=== PATIENT | female | born 1990 | race Caucasian/White ===

== ENCOUNTER 2018-06-18 12:00 | Inpatient (IN) | payer MEDICAID, OTHER ==
[~2018-06-18 12:00] MED LIST: Dexamethasone 20 MG/5 ML VIAL ONE; Ketorolac Tromethamine 30 MG/ML VIAL ONE; Ondansetron HCl/PF 4 MG/2 ML Vial ONE; PHENYLEPHRINE-NS 100 MCG/ML 10 ML SYRINGE ONE; ePHEDrine/0.9% NaCl/PF SYRINGE 50 mg/10 ml ONE
[2018-06-18 15:56] VITALS: BMI 42.2
[2018-06-18] MEDS ORDERED: Ondansetron HCl/PF 4 MG/2 ML Vial IVP PRN ×4 (16:26→20:52)
[2018-06-18] MEDS ORDERED: Ketorolac Tromethamine 30 MG/ML VIAL IVP PRN (16:26)
[2018-06-18] MEDS ORDERED: HYDROmorphone 2 MG/ML VIAL SLOW IVP PRN (16:26)
[2018-06-18] MEDS ORDERED: Meperidine HCl/PF 25 MG/ML VIAL SLOW IVP PRN (16:26)
[2018-06-18] MEDS ORDERED: Eucerin (Mineral Oil/Petrolatum,White) 30 gm Jar TOP PRN (16:26)
[2018-06-18] MEDS ORDERED: Naloxone HCl 0.4 mg/ml Vial IVP PRN ×2 (16:26)
[2018-06-18] MEDS ORDERED: Promethazine HCl 25 MG/ML VIAL IM PRN ×2 (16:26)
[2018-06-18] MEDS ORDERED: diphenhydrAMINE 50 MG/ML VIAL IVP PRN (16:26)
[2018-06-18] MEDS ORDERED: Naloxone HCl 0.4 mg/ml Vial IV PRN (16:26)
[2018-06-18] MEDS ORDERED: Promethazine HCl 25 MG SUPP PR PRN (16:26)
[2018-06-18] MEDS ORDERED: Bicitra 30 ML UDCUP ONE (16:26)
[2018-06-18] MEDS ORDERED: CEFAZOLIN/Water 2 GM/20 ML SYRINGE ONE (16:26)
[2018-06-18] MEDS ORDERED: Lactated Ringer's 1,000 ML IV SCH (16:30)
[2018-06-18] MEDS ORDERED: CEFAZOLIN/Water 2 GM/20 ML SYRINGE SLOW IVP SCH (16:30)
[2018-06-18] MEDS ORDERED: Communication Order-Pharmacy FS SCH (16:30)
[2018-06-18] MEDS ORDERED: Bicitra 30 ML UDCUP PO SCH (16:30)
[2018-06-18] MEDS ORDERED: Ketorolac Tromethamine 30 MG/ML VIAL IVP SCH (16:30)
[2018-06-18 16:46] LABS: #Eosinphils 0.2 thou/uL (0.0-0.7); #Lymphocytes 1.5 thou/uL (1.20-3.40); #Monocytes 0.5 thou/uL (0.11-0.59); #Neutrophils 7.1 thou/uL (1.40-6.50); %Basophils 0.3 % (0.0-1.0); %Lymphocytes 16.3 % (21.0-51.0); %Monocytes 5.6 % (0.0-10.0); %Neutrophils 75.8 % (42.0-75.0); Hemoglobin 11.5 g/dL (12.0-16.0); Mean Corpuscular HGB CONC 34.6 g/dL (32.0-36.0); Mean Corpuscular Hemoglobin 30.6 pg (27.0-31.0); Mean Corpuscular Volume 88.3 fL (78.0-98.0); Mean Platelet Volume 8.5 fL (7.4-10.4); Platelet Count 195 thou/uL (130-400); RBC Distribution Width 12.5 % (11.5-14.5); Red Blood Cell (RBC) Count 3.77 mill/uL (4.20-5.40); White Blood Cell (WBC) Count 9.3 thou/uL (4.8-10.8)
[2018-06-18 17:26] LABS: Syphilis Antibody Nonreactive (Nonreactive); Syphilis Antibody Index 0.09 S/CO (<1.00 Non-Reactive)
[2018-06-18 17:27] LABS: HBSAg Index 0.32 S/CO (0-0.99); Hep B Surf Ag Non-Reactive S/CO (NonReactive)
[2018-06-18 19:26] LABS: Amphetamine Not Detected (NotDetected); Barbiturates Screen Not Detected (NotDetected); Benzodiazepine Screen Not Detected (NotDetected); Cocaine Metabolite Screen Not Detected (NotDetected); Medtox Control Line Valid? VALID (VALID); Medtox Reader # READER 4; Methadone Not Detected (NotDetected); Methamphetamine Not Detected (NotDetected); Opiate Screen Not Detected (NotDetected); Oxycodone Screen Not Detected (NotDetected); Phencyclidine (PCP) Not Detected (NotDetected); THC/Cannabinoid Screen Not Detected (NotDetected); Tricyclic Screen Not Detected (NotDetected)
[2018-06-18] MEDS ORDERED: Bisacodyl 10 MG SUPP PR PRN (20:52)
[2018-06-18] MEDS ORDERED: Simethicone Chewable 80 MG TAB PO PRN (20:52)
[2018-06-18] MEDS ORDERED: diphenhydrAMINE 25 MG CAP PO PRN (20:52)
[2018-06-18] MEDS ORDERED: NS / Oxytocin 40 units/1000ml 1,000 ML IV SCH (20:52)
[2018-06-18] MEDS ORDERED: Meperidine HCl/PF 25 MG/ML VIAL IM PRN (20:52)
[2018-06-18] MEDS ORDERED: HYDROcodone/Acetaminophen 5/325 mg Tablet PO PRN (20:52)
[2018-06-18] MEDS ORDERED: Adacel (T-DAP) 0.5 ML VIAL IM ONE (21:15)
[2018-06-18] MEDS: Ferrous Sulfate 325 MG TAB PO SCH (23:59)
[2018-06-18] MEDS: Ibuprofen 800 MG TAB PO SCH (23:59)
[2018-06-18] MEDS: Docusate Calcium (SURFAK) 240 MG CAP PO SCH (23:59)
[2018-06-19] MEDS ORDERED: Butorphanol Tartrate 1 MG/ML VIAL SLOW IVP PRN (04:30)
[2018-06-19] MEDS: Ibuprofen 800 MG TAB PO SCH ×3 (05:12→22:22)
[2018-06-19 05:34] LABS: Hemoglobin 10.7 g/dL (12.0-16.0); Mean Corpuscular HGB CONC 34.8 g/dL (32.0-36.0); Mean Platelet Volume 8.7 fL (7.4-10.4); Platelet Count 173 thou/uL (130-400); RBC Distribution Width 12.4 % (11.5-14.5); Red Blood Cell (RBC) Count 3.44 mill/uL (4.20-5.40); White Blood Cell (WBC) Count 12.7 thou/uL (4.8-10.8)
[2018-06-19] MEDS: Prenatal Vitamin 1 TAB PO SCH (08:25)
[2018-06-19] MEDS: HYDROcodone/Acetaminophen 5/325 mg Tablet PO PRN (08:25)
[2018-06-19] MEDS: Docusate Calcium (SURFAK) 240 MG CAP PO SCH ×2 (08:25→22:22)
[2018-06-19] MEDS: Ferrous Sulfate 325 MG TAB PO SCH ×2 (08:27→22:24)
[2018-06-20] MEDS: Ibuprofen 800 MG TAB PO SCH ×3 (05:27→21:40)
[2018-06-20] MEDS: Prenatal Vitamin 1 TAB PO SCH (08:39)
[2018-06-20] MEDS: HYDROcodone/Acetaminophen 5/325 mg Tablet PO PRN ×2 (08:39→20:33)
[2018-06-20] MEDS: Docusate Calcium (SURFAK) 240 MG CAP PO SCH ×2 (08:39→20:33)
[2018-06-20] MEDS: Ferrous Sulfate 325 MG TAB PO SCH ×2 (09:52→22:25)
[2018-06-21] MEDS: Ibuprofen 800 MG TAB PO SCH ×2 (06:04→13:34)
[2018-06-21 08:09] VITALS: BP 122/77; TEMP 98.6
[2018-06-21] MEDS: Prenatal Vitamin 1 TAB PO SCH (08:56)
[2018-06-21] MEDS: Docusate Calcium (SURFAK) 240 MG CAP PO SCH (08:56)
[2018-06-21] MEDS: HYDROcodone/Acetaminophen 5/325 mg Tablet PO PRN (08:56)
[2018-06-21] MEDS: Ferrous Sulfate 325 MG TAB PO SCH (08:59)
== END 2018-06-21 14:08 | disposition home or self-care (01) | DRG 765 ==
LOC: L&D 15:20 → 3SW 21:28
PROVIDERS: ADMIT Family Medicine; ATTEND Family Medicine
PROC: 10D00Z1 Extraction of Products of Conception, Low, Open Approach (ICD-10-PCS; principal; 2018-06-18)
DX: O34.219 Maternal care for unspecified type scar from previous cesarean delivery (principal); Z68.41 Body mass index [BMI] 40.0-44.9, adult; Z3A.39 39 weeks gestation of pregnancy; Z37.0 Single live birth; O99.214 Obesity complicating childbirth; E66.01 Morbid (severe) obesity due to excess calories; O69.81X0 Labor and delivery complicated by cord around neck, without compression, not applicable or unspecified
CPT/HCPCS: 36415; 51702; 80306; 85025; 85027; 86780; 86850; 86900; 86901; 87340; J1100; J1885; J2405